=== PATIENT | male | born 1960 | race Caucasian/White ===

== ENCOUNTER 2025-01-29 22:31 | Emergency (ER) | payer OTHER ==
[~2025-01-29] VITALS: Ht 182.9 cm; Wt 100.0 kg
[2025-01-29 23:03] LABS: KETONE, URINE AUTO RFX NEGATIVE (NEGATIVE); LEUKOCYTE ESTERASE UR AUTO RFX NEGATIVE (NEGATIVE); NITRITE, URINE AUTO RFX NEGATIVE (NEGATIVE); RBC, URINE AUTO RFX 0 /HPF (0-3); SQUAM EPITHELIAL CELL UR AURFX 0 /HPF (0-6); WBC, URINE AUTO RFX 1 /HPF (0-3)
[2025-01-29 23:06] LABS: BASO # 0.0 10^3/uL (0.0-0.2); BASO % 0.6 % (0.0-1.0); EOS # 0.2 10^3/uL (0.0-0.5); EOS % 2.9 % (0.0-3.0); LYMPH # 1.8 10^3/uL (1.5-5.0); LYMPH % 26.5 % (24.0-44.0); MONO # 0.6 10^3/uL (0.0-0.8); MONO % 8.4 % (2.0-8.0); NEUTROPHILS # 4.3 10^3/uL (1.5-8.5); NEUTROPHILS % 61.2 % (36.0-66.0); PLATELET COUNT, AUTOMATED 188 10^3/uL (150-450)
[2025-01-29 23:35] LABS: ALT/SGPT 28 U/L (7.0-40); AST/SGOT 21 U/L (<34); CALCIUM LEVEL 9.3 MG/DL (8.3-10.6); CARBON DIOXIDE LEVEL 23 MMOL/L (20-31); CHLORIDE LEVEL 107 MMOL/L (98-107); CREATININE FOR GFR 0.88 MG/DL (0.70-1.30); GLOMERULAR FILTRATION RATE > 90.0 (>49); POTASSIUM SERUM 4.2 MMOL/L (3.5-5.1); SODIUM LEVEL 143 MMOL/L (136-145)
[2025-01-29] MEDS ORDERED: CIPR-249 PO (23:40)
[2025-01-29] MEDS ORDERED: TAMS-18 PO (23:40)
[2025-01-30 00:03] LABS: PSA SCREENING 2.37 NG/ML (< 4.00)
[2025-01-30] MEDS: TAMSULOSIN 0.4 MG CAP PO ONE (00:10)
[2025-01-30] MEDS: CIPROFLOXACIN 500 MG TABLET PO ONE (00:10)
[2025-01-30 00:16] VITALS: BP 131/79; TEMP 97.4; O2SAT 96
== END 2025-01-30 00:19 | disposition home or self-care (01) ==
LOC: M ED 22:31
DX: N41.0 Acute prostatitis (principal); N13.2 Hydronephrosis with renal and ureteral calculous obstruction; Z79.899 Other long term (current) drug therapy